=== PATIENT | female | born 2005 | race Caucasian/White ===

== ENCOUNTER 2024-08-23 06:16 | Day surgery (SDC) | payer OTHER, SELFPAY ==
[2024-08-23] VITALS (7 sets, daily range): BP systolic 105–121; BP diastolic 74–99; BMI 23.0
[2024-08-23 06:51] LABS: Hemoglobin 14.4 g/dL (12.0-16.0)
== END 2024-08-23 10:04 | disposition home or self-care (01) ==
LOC: SDS 06:16
PROVIDERS: ATTENDING PHYSICIAN Otolaryngology
DX: J34.89 Other specified disorders of nose and nasal sinuses (principal); J35.03 Chronic tonsillitis and adenoiditis; J03.91 Acute recurrent tonsillitis, unspecified; B07.8 Other viral warts
CPT/HCPCS: 42821; 11440; 88304; 88305; 85018

== ENCOUNTER 2024-08-29 15:22 | Day surgery (SDC) | payer OTHER, SELFPAY ==
[2024-08-29] VITALS (9 sets, daily range): BP systolic 117–140; BP diastolic 75–86
--- NOTE | 2024-08-29 13:32 | ED.GENMED ---
History of Present Illness
General
Chief Complaint: Throat Problem
Source: patient and family
Exam Limitations: none
Time Seen by Provider: 08/29/24 13:27
Nursing documentation reviewed up to this point in time: agreed with
History of Present Illness
History of Present Illness:
19-year-old female presents emergency department due to tonsillar bleeding. She is 6 days postop tonsillectomy by Dr. Acevedo. She called Dr. Madiha Minor who stated to the patient that he was on his way here to see her.
Past History
Past History
ED Past Medical History: Asthma
ED Past Surgical History: Tonsilectomy
Social History
Tobacco: Non-smoker
Alcohol: None
Drug: None
Personal: Single
Living: with family
Review of Systems
Review of Systems
Allergies reviewed?: Yes
All Other Systems: Not applicable
Constitutional: Reports no symptoms
EENT: Reports other (Tonsillar bleeding)
Respiratory: Reports no symptoms
Cardiac: Reports no symptoms
ABD/GI: Reports no symptoms
: Reports no symptoms
Musculoskeletal: Reports no symptoms
Skin: Reports no symptoms
Neurological: Reports no symptoms
Endocrine: Reports no symptoms
Hematologic/Lymphatic: Reports no symptoms
Psychiatric: Reports no symptoms
Phy Exam
Physical Exam
Physical Exam:
Physical Exam
General: Afebrile, appears uncomfortable
Neck: supple. no meningeal signs. normal posterior pharynx
Heart: s1/s2 tachycardia, no murmur. equal radial
pulses.
HEENT: Pupils equal round reactive to light, EOMI, bilateral tonsillar hemorrhage
Lungs: no acute respiratory distress. clear bilaterally
Abdomen: normal bowel sounds. not tender. no CVAT
Neuro: alert and oriented. no focal neurological deficits cranial nerves II through XII intact
Skin: no rash
Psychiatric: well kept. interactive and cooperative
Extremities: no edema. no calf tenderness. negative homans. good distal pulses
Course
Orders/Labs/Results
Orders:
Orders
08/29/24 13:29
Type+Screen Urgent
Cardiac Monitoring- Treatment ONCE
IV Insert/Care/Rem.- Treatment PRN
08/29/24 13:30
Complete Blood Count/With Diff Urgent
Vital Signs
Initial and Last Documented VS:
Initial Vital Signs
Pulse Resp BP Pulse Ox
146 18 140/83 98
08/29/24 13:15 08/29/24 13:15 08/29/24 13:15 08/29/24 13:15
Last Documented Vital Signs
Pulse Resp BP Pulse Ox
146 18 140/83 98
08/29/24 13:15 08/29/24 13:15 08/29/24 13:15 08/29/24 13:15
MDM/Problems Addressed
Differential Diagnosis Includes:
hemorrhagic shock
MDM/Problems Addressed:
19-year-old female with postoperative tonsillar hemorrhage. Dr. Feldman to the OR.
*Pulse Oximetry
Patient hypoxic: no
*Grocery Clerk Interpretation
Rate: tachycardiac
Interpretation: abnormal
Heart Rate: 132
Rhythm: sinus tachycardia
*Critical Care Note
Total Time (30-74mins, 75-104mins- exclusive of procedures): 30
comment:
Critical care statement: A total of 30 minutes of critical care time was provided for this patient. This includes management of unstable vital signs, evaluation of the patient at bedside, reviewing the patient's pertinent medical records, discussion
with consultants, review of old EKGs and review of pertinent medical records. This time with separate from time utilized to perform the aforementioned documented procedures
Patient Management
Discussion with other providers: Craft Demonstrator (ENT, Dr. Feldman to take to OR)
Escalation/DeEscalation of care consider admission/obs:
Admission to operating room indicated
ED Attending Note
-
Portions of this chart may have been created with voice recognition software.� Occasional wrong word or��sound alike� substitutions may have occurred due to the inherent limitations of voice recognition software.
Discharge Plan
Departure
Patient Disposition: OR
Date of Disposition: 08/29/24
Time of Disposition: 13:40
Admit to: OR
Presentation/result/management discussed w/ accepting MD/DO: ENT, Dr. Feldman
Patient with high blood pressure during this ER visit?: Yes
Condition: Fair
Discharge Problem:
Postoperative hemorrhage of tonsil
Prescriptions:
No Action
sertraline [Zoloft] 100 mg Tablet
100 mg PO HS
Loestrin 24 Fe 1 mg-20 mcg (24)/75 mg (4) Tablet
1 tab PO HS
albuterol sulfate 90 mcg/actuation Hfa Aerosol Inhaler
2 puff INHALATION PRN PRN (Reason: SOB)
ondansetron 4 mg tablet,disintegrating
4 mg PO Q8HPRN PRN (Reason: nausea) Qty: 5 1RF
Theragen Tablet
1 tab PO DAILY
hydrocodone-acetaminophen 5-325 mg tablet
1 - 2 tab PO Q4HPRN PRN (Reason: severe pain)
Interventions
Interventions:
*Risk Screen - Suicide Last Done: 08/29/24 13:15
*General Assessment Last Done: 08/29/24 13:15
*Neglect/Abuse Screening Last Done: 08/29/24 13:15
*ED COVID-19 Vaccine History Last Done: 08/29/24 13:15
Discharge Date and Time
Print Language: ITALIAN
[2024-08-29] MEDS: LR 1000 IV (13:56)
[2024-08-29 14:05] LABS: % Basophils 0.3 % (0-2); % Eosinophils 2.7 % (0-6); % Lymphocytes 30.2 % (20.5-51.1); % Neutrophils 59.8 % (42.2-75.2); Absolute Eosinophils 0.2 10^3/uL (0-0.7); Absolute Lymphocytes 1.8 10^3/uL (1.2-3.4); Absolute Monocytes 0.4 10^3/uL (0.1-0.6); Absolute Neutrophils 3.5 10^3/uL (1.4-6.5); Hematocrit 43.8 % (37.0-47.0); Hemoglobin 15.1 g/dL (12.0-16.0); Mean Corp Hgb Conc. 34.5 g/dL (33.0-37.0); Mean Corpuscular Hgb 31.2 pg (27.0-31.0); Mean Corpuscular Volume 90.5 fL (81.0-99.0); Mean Platelet Volume 9.8 fL (7.4-10.4); Nucleated Red Blood Cells % 0 %; Platelet Count 272 10^3/uL (130-400); Red Blood Cell Count 4.84 10^6/uL (4.20-5.40); Red Cell Dist. Width 11.5 % (11.5-14.5); White Blood Cell Count 5.9 10^3/uL (4.8-10.8)
--- NOTE | 2024-08-29 14:07 | W.PN.UPDATE ---
Update Note
Progress Note Update
H&P dictated.
s/p T&A, excision benign nasal mass 6 days ago, now with vigorous bleeding from L tonsillar fossa.
Will take to OR for control of hemorrhage.
== END 2024-08-29 16:30 | disposition home or self-care (01) ==
LOC: SDS 15:22
PROVIDERS: ATTENDING PHYSICIAN Otolaryngology; EMERGENCY PHYSICIAN Emergency Medicine; FAMILY PHYSICIAN Nurse Practitioner Adult Health
DX: J95.830 Postprocedural hemorrhage of a respiratory system organ or structure following a respiratory system procedure (principal); Y83.8 Other surgical procedures as the cause of abnormal reaction of the patient, or of later complication, without mention of misadventure at the time of the procedure
CPT/HCPCS: 42962; 85025; 86850; 86900; 86901; 96361; 96374; 96375; 99291

== ENCOUNTER → 2024-09-14 07:34 | Outpatient (REF) | payer OTHER, SELFPAY ==
[2024-09-14 08:33] LABS: % Basophils 0.8 % (0-2); % Eosinophils 6.7 % (0-6); % Immature Granulocytes 0.2 % (0-0.5); % Lymphocytes 34.8 % (20.5-51.1); % Monocytes 4.9 % (1.7-9.3); % Neutrophils 52.6 % (42.2-75.2); Absolute Eosinophils 0.3 10^3/uL (0-0.7); Absolute Lymphocytes 1.7 10^3/uL (1.2-3.4); Absolute Monocytes 0.2 10^3/uL (0.1-0.6); Absolute Neutrophils 2.6 10^3/uL (1.4-6.5); Hematocrit 35.9 % (37.0-47.0); Hemoglobin 12.4 g/dL (12.0-16.0); Mean Corp Hgb Conc. 34.5 g/dL (33.0-37.0); Mean Corpuscular Hgb 31.1 pg (27.0-31.0); Mean Platelet Volume 10.1 fL (7.4-10.4); Nucleated Red Blood Cells % 0 %; Platelet Count 264 10^3/uL (130-400); Red Blood Cell Count 3.99 10^6/uL (4.20-5.40); Red Cell Dist. Width 11.9 % (11.5-14.5); White Blood Cell Count 4.9 10^3/uL (4.8-10.8)
[2024-09-14 09:21] LABS: ALT (SGPT) 17 U/L (0-35); AST (SGOT) 20 U/L (14-36); Albumin 4.4 g/dl (3.5-5.0); Alkaline Phosphatase 43 U/L (38-126); Blood Urea Nitrogen 10 mg/dl (7-17); Calcium 9.4 mg/dl (8.4-10.2); Carbon Dioxide 23 mmol/L (22-30); Chloride 103 mmol/L (98-107); Glucose 82 mg/dl (70-99); HDL Cholesterol 62 mg/dl; LDL Cholesterol, Calculated 81 mg/dl; Potassium 4.4 mmol/L (3.5-5.1); Sodium 139 mmol/L (135-145); Total Bilirubin 0.4 mg/dl (0.2-1.3); Total Cholesterol 156 mg/dl (50-199); Total Protein 6.8 g/dl (6.3-8.2); Triglyceride 67 mg/dl (10-149); Very Low Density Lipoprotein 13 mg/dl (0-30); eGFR > 60.00
[2024-09-14 09:27] LABS: Urine Albumin Negative (Neg - Trace); Urine Bilirubin Negative (Negative); Urine Character Clear (Clear); Urine Color Yellow; Urine Glucose Negative (Negative); Urine Ketone Negative (Negative); Urine Leukocyte Negative (Negative); Urine Nitrite Negative (Negative); Urine Occult Blood Negative (Negative); Urine Specific Gravity 1.015 (<1.030); Urine Urobilinogen Negative (Neg - 1+)
[2024-09-14 09:31] LABS: Vitamin D, 25-OH*** 39.2 ng/mL (30-80)
[2024-09-14 09:49] LABS: Ferritin 75.1 ng/ml (6.24-137)
[2024-09-14 10:05] LABS: Vitamin B12 709 pg/ml (239-931)
[2024-09-16 13:31] LABS: Lyme Antibody Screen, EIA Negative (Negative)
== END ==
LOC: REG 07:34
PROVIDERS: ATTENDING PHYSICIAN Nurse Practitioner Adult Health
DX: Z00.01 Encounter for general adult medical examination with abnormal findings (principal); R53.82 Chronic fatigue, unspecified
CPT/HCPCS: 36415; 80053; 80061; 81003; 82306; 82607; 82728; 84443; 85025; 86618